=== PATIENT | male | born 1975 | race Caucasian/White ===

== ENCOUNTER 2018-09-25 01:59 | Emergency (ER) | payer OTHER ==
[~2018-09-25] VITALS: Ht 172.7 cm; Wt 88.3 kg
[2018-09-25 02:23] VITALS: BP 165/99; PULSE 98; RESP 20; Ht 172.7 cm; Wt 88.3 kg
== END 2018-09-25 05:25 | disposition left against medical advice (07) ==
LOC: FTE 01:59
DX: Z53.21 Procedure and treatment not carried out due to patient leaving prior to being seen by health care provider (principal)